=== PATIENT | female | born 1930 | race African-American/Black ===

== ENCOUNTER 2017-04-14 18:45 | Inpatient (IN) | payer MEDICARE ==
[~2017-04-14] VITALS: Ht 165.1 cm; Wt 70.5 kg
[~2017-04-14 18:45] MED LIST: ATEN1TAB74 PO; ATOR20TA PO; CLON.1 PO; HYDR-2768 PO; HYDR200T42 PO; LISI-366 PO; RANI150 PO
[2017-04-14 18:50] VITALS: BP 186/86; PULSE 80; RESP 20; TEMP 100.8; O2SAT 97
[2017-04-14] MEDS ORDERED: LISI40TA PO (19:08)
[2017-04-14] MEDS ORDERED: ASPI81CH6 CHEW (19:08)
[2017-04-14] MEDS ORDERED: [UNRECOGNIZED DRUG - OTHER] PO (19:08)
[2017-04-14] MEDS ORDERED: CALC-131 PO (19:08)
[2017-04-14] MEDS ORDERED: HYDR25TA5 PO (19:08)
[2017-04-14] MEDS ORDERED: BIOT10TA PO (19:08)
[2017-04-14] MEDS ORDERED: ATEN50TA PO (19:08)
[2017-04-14] MEDS ORDERED: RANI150T PO (19:08)
[2017-04-14] MEDS ORDERED: PLAQ200T PO (19:08)
[2017-04-14] MEDS ORDERED: HYDR-3799 PO (19:08)
[2017-04-14] MEDS ORDERED: ROSU1TAB4 PO (19:08)
[2017-04-14] MEDS ORDERED: CLON0.1T PO (19:08)
[2017-04-14] MEDS ORDERED: RAW PROBIOTIC PO (19:08)
[2017-04-14] MEDS ORDERED: OMEG-33 PO (19:08)
[2017-04-14] MEDS ORDERED: SODIUM CHLOR 0.9% 1000 ML INJ 1,000 ML IV ONE (19:20)
[2017-04-14] MEDS ORDERED: ACETAMINOPHEN 325 MG TAB PO ONE (19:30)
[2017-04-14 19:55] LABS: AUTOMATED NEUTROPHIL # 6.6 TH/MM3 (1.8-7.7); BASOPHIL # 0.1 TH/MM3 (0-0.2); BASOPHIL % 0.6 % (0.0-2.0); EOSINOPHIL % 0.4 % (0.0-4.0); HEMATOCRIT 36.5 % (35.0-46.0); LYMPHOCYTE # 1.2 TH/MM3 (1.0-4.8); MEAN CELL VOLUME 91.7 FL (80.0-100.0); MEAN CORPUSCULAR HEMOGLOBIN 28.8 PG (27.0-34.0); MEAN CORPUSCULAR HGB CONC 31.4 % (32.0-36.0); MONO % 16.3 % (0.0-8.0); NEUT % 69.7 % (16.0-70.0); PLATELET COUNT 220 TH/MM3 (150-450); RED BLOOD COUNT 3.98 MIL/MM3 (4.00-5.30); RED CELL DISTRIBUTION WIDTH 13.3 % (11.6-17.2); WHITE BLOOD COUNT 9.4 TH/MM3 (4.0-11.0)
[2017-04-14 19:59] LABS: HEMO FLAGS DIFF FINAL
[2017-04-14 20:10] VITALS: BP 186/92; PULSE 83; RESP 18; O2SAT 94
[2017-04-14 20:15] LABS: BLOOD, URINE NEG (NEG); GLUCOSE,URINE NEG (NEG); KETONE, URINE NEG (NEG); NITRITE,URINE NEG (NEG); PH, URINE 5.5 (5.0-8.5)
--- NOTE | 2017-04-14 20:16 | RADRPT ---
EXAM DATE/TIME: 04/14/2017 19:47 [facility] COMPARISON: No previous studies available for comparison. INDICATIONS : Cold symptoms for 1 week. MEDICAL HISTORY : Unobtainable. SURGICAL HISTORY : Unobtainable. ENCOUNTER: Initial ACUITY: 1 week PAIN SCORE: 0/10 LOCATION: Bilateral chest FINDINGS: A single view of the chest demonstrates mild cardiomegaly. Tortuous aorta. Elevated right hemidiaphra gm. Right basilar air space disease most characteristic of a bronchopneumonia. Mild left basilar opac ity. CONCLUSION: 1. Airspace disease right lung base most characteristic of a bronchopneumonia. Elevated right hemidia phragm with mild bibasilar atelectasis. Rex Zarate MD on April 14, 2017 at 20:13 Board Certified Radiologist. This report was verified electronically.
[2017-04-14 20:17] LABS: APTT (PATIENT) 27.7 SEC (24.3-30.1); PROTHROMBIN TIME - PATIENT 10.5 SEC (9.8-11.6)
--- NOTE | 2017-04-14 20:25 | RADRPT ---
EXAM DATE/TIME: 04/14/2017 19:50 [facility] COMPARISON: No previous studies available for comparison. INDICATIONS : Fell yesterday. MEDICAL HISTORY : None. SURGICAL HISTORY : None. ENCOUNTER: Initial ACUITY: 1 day PAIN SCORE: 8/10 LOCATION: Left posterior Hip FINDINGS: Examination of the left hip was performed with AP pelvis. The primary and secondary trabecular patte rn of the femoral neck is intact. The acetabulum is grossly intact. CONCLUSION: 1. No acute findings. 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 Rex Zarate MD on April 14, 2017 at 20:22 Board Certified Radiologist. This report was verified electronically.
--- NOTE | 2017-04-14 20:27 | PD ---
HPI Chief Complaint: General Weakness Time Seen by Provider: 19:12 Travel History International Travel<30 days: No Contact w/Intl Traveler<30days: No Traveled to known affect area: No History of Present Illness HPI Patient is a 87 year old female who comes in complaining of chills and feeling weak. She says this has been going on for the past week. She has been taking Tylenol because she felt like she had a fever, but has not taken her temperature. She denies any pain anywhere. She says she has not been eating because she has not appetite. She denies nausea or vomiting. She denies abdominal pain, or chest pain. She says she was so weak yesterday that she fell down. She landed on her left hip and has some pain there occasionally. She denies hitting her head. She last took Tylenol last night. PFSH Past Medical History Hx Anticoagulant Therapy: Yes (ASA) Anemia: Yes Arthritis: Yes Heart Rhythm Problems: Yes ("DURING SURGERY FOR LIVER CYST") Cardiac Catheterization: No Cardiovascular Problems: No High Cholesterol: Yes Congestive Heart Failure: No Diabetes: No Diminished Hearing: No GERD: Yes Hypertension: Yes Musculoskeletal: Yes (SPINAL STENOSIS) Myocardial Infarction: No Thyroid Disease: Yes Influenza Vaccination: No ?: Not Menopausal: Yes : 4 Para: 4 Past Surgical History Abdominal Surgery: Yes (CYST REMOVED FROM LIVER (?VIA LAP) SEPTEMBER 2007) Appendectomy: Yes (?) Cholecystectomy: Yes (?) Coronary Artery Bypass Graft: No Eye Surgery: Yes (BILATERAL CATARACT) Hysterectomy: Yes Joint Replacement: Yes (RIGHT KNEE) Oral Surgery: Yes (IMPLANTS) Social History Alcohol Use: No Tobacco Use: No Substance Use: No Allergies-Medications (Allergen,Severity, Reaction): Coded Allergies: No Known Allergies (Verified Allergy, Unknown, 04/14/17) Reported Meds & Prescriptions Reported Meds & Active Scripts Active Reported [Super Multiiron Free] 1 Cap PO DAILY Biotin 10 Mg Tab 10 Mg PO DAILY [Raw Probiotic] 1 Cap PO DAILY Calcium & Magnesium (Calcium-Magnesium) 750-465 Mg Tab 1 Tab PO DAILY Fish Oil Shawnee-3 EC 1,200 mg (Shawnee-3/Dha/Epa/Fish Oil) 360 Mg-1,200 Mg Capsule. 1 Cap PO DAILY Aspirin Low Dose (Aspirin) 81 Mg Chew 81 Mg CHEW HS Rosuvastatin (Rosuvastatin Calcium) 5 Mg Tab 5 Mg PO DAILY Ranitidine (Ranitidine HCl) 150 Mg Tab 150 Mg PO BID Plaquenil (Hydroxychloroquine Sulfate) 200 Mg Tab 200 Mg PO DAILY Take with food Hydralazine HCl 25 Mg Tablet 50 Mg PO TID Lisinopril 40 Mg Tab 40 Mg PO DAILY Clonidine (Clonidine HCl) 0.1 Mg Tab 0.1 Mg PO HS Atenolol 50 Mg Tab 50 Mg PO BID Review of Systems Except as stated in HPI: all other systems reviewed are Neg General / Constitutional: Positive: Fever, Chills HENT: No: Headaches, Lightheadedness Cardiovascular: No: Chest Pain or Discomfort Respiratory: No: Shortness of Breath Gastrointestinal: No: Vomiting, Abdominal Pain Musculoskeletal: No: Myalgias, Edema Skin: No Rash, No Change in Pigmentation Neurologic: Positive: Weakness Physical Exam Narrative GENERAL: Awake and alert, in no acute distress. SKIN: Focused skin assessment warm/dry. No wounds or signs of infection. HEAD: Atraumatic. Normocephalic. EYES: Pupils equal and round. No scleral icterus. EOMI. ENT: Mucous membranes pink and moist. NECK: Trachea midline. No JVD. CARDIOVASCULAR: Regular rate and rhythm. No murmur appreciated. RESPIRATORY: No accessory muscle use. Clear to auscultation. Breath sounds equal bilaterally. GASTROINTESTINAL: Abdomen soft, non-tender, nondistended. MUSCULOSKELETAL: No obvious deformities. No clubbing. No cyanosis. No edema. Pain with movement of her left hip. NEUROLOGICAL: Awake and alert. No obvious cranial nerve deficits. Motor grossly within normal limits. Normal speech. PSYCHIATRIC: Appropriate mood and affect; insight and judgment normal. Data Data Last Documented VS Vital Signs Date Time Temp Pulse Resp B/P (MAP) Pulse Ox O2 Delivery O2 Flow Rate FiO2 04/14/17 20:12 Nasal Cannula 2.00 04/14/17 20:10 83 18 186/92 (123) 94 04/14/17 18:50 100.8 Orders Orders Electrocardiogram (04/14/17 19:20) Complete Blood Count With Diff (04/14/17 19:20) Comprehensive Metabolic Panel (04/14/17 19:20) Prothrombin Time / Inr (Pt) (04/14/17 19:20) Act Partial Throm Time (Ptt) (04/14/17 19:20) Lactic Acid Sepsis Protocol (04/14/17 19:20) Ckmb (Isoenzyme) Profile (04/14/17 19:20) Troponin I (04/14/17 19:20) Urinalysis - C+S If Indicated (04/14/17 19:20) Influenzae A/B Antigen (04/14/17 19:20) Blood Culture (04/14/17 19:20) Chest, Single Ap (04/14/17 19:20) Blood Glucose (04/14/17 19:20) Ecg Monitoring (04/14/17 19:20) Iv Access Insert/Monitor (04/14/17 19:20) Oximetry (04/14/17 19:20) Oxygen Administration (04/14/17 19:20) Acetaminophen (Tylenol) (04/14/17 19:30) Sodium Chlor 0.9% 1000 Ml Inj (Ns 1000 M (04/14/17 19:20) Hip, Uni(4+Vws) W Ap Pelvis (04/14/17 ) Ceftriaxone Inj (Rocephin Inj) (04/14/17 20:30) Azithromycin Inj (Zithromax Inj) (04/14/17 20:30) Levofloxacin 750 Mg Premix Inj (Levaquin (04/14/17 20:30) CKMB (04/14/17 19:40) CKMB% (04/14/17 19:40) Admit Order (Ed Use Only) (04/14/17 ) Admit To Inpatient (04/14/17 ) Labs Laboratory Tests Test 04/14/17 19:40 04/14/17 20:05 White Blood Count 9.4 TH/MM3 Red Blood Count 3.98 MIL/MM3 Hemoglobin 11.4 GM/DL Hematocrit 36.5 % Mean Corpuscular Volume 91.7 FL Mean Corpuscular Hemoglobin 28.8 PG Mean Corpuscular Hemoglobin Concent 31.4 % Red Cell Distribution Width 13.3 % Platelet Count 220 TH/MM3 Mean Platelet Volume 8.9 FL Neutrophils (%) (Auto) 69.7 % Lymphocytes (%) (Auto) 13.0 % Monocytes (%) (Auto) 16.3 % Eosinophils (%) (Auto) 0.4 % Basophils (%) (Auto) 0.6 % Neutrophils # (Auto) 6.6 TH/MM3 Lymphocytes # (Auto) 1.2 TH/MM3 Monocytes # (Auto) 1.5 TH/MM3 Eosinophils # (Auto) 0.0 TH/MM3 Basophils # (Auto) 0.1 TH/MM3 CBC Comment DIFF FINAL Differential Comment Prothrombin Time 10.5 SEC Prothromb Time International Ratio 1.0 RATIO Activated Partial Thromboplast Time 27.7 SEC Blood Urea Nitrogen 22 MG/DL Creatinine 1.10 MG/DL Random Glucose 107 MG/DL Total Protein 7.2 GM/DL Albumin 3.2 GM/DL Calcium Level 8.9 MG/DL Alkaline Phosphatase 64 U/L Aspartate Amino Transf (AST/SGOT) 140 U/L Alanine Aminotransferase (ALT/SGPT) 133 U/L Total Bilirubin 0.5 MG/DL Sodium Level 125 MEQ/L Potassium Level 4.0 MEQ/L Chloride Level 91 MEQ/L Carbon Dioxide Level 23.7 MEQ/L Anion Gap 10 MEQ/L Estimat Glomerular Filtration Rate 57 ML/MIN Lactic Acid Level 0.8 mmol/L Total Creatine Kinase 131 U/L Creatine Kinase MB 1.0 NG/ML Troponin I LESS THAN 0.02 NG/ML Urine Color YELLOW Urine Turbidity CLEAR Urine pH 5.5 Urine Specific [place] 1.015 Urine Protein TRACE mg/dL Urine Glucose (UA) NEG mg/dL Urine Ketones NEG mg/dL Urine Occult Blood NEG Urine Nitrite NEG Urine Bilirubin NEG Urine Leukocyte Esterase NEG Urine RBC 4-9 /hpf Urine WBC 3-5 /hpf Urine Squamous Epithelial Cells 0-5 /hpf Urine Amorphous Sediment SMALL Urine Bacteria OCC /hpf Urine Hyaline Casts 0-2 /lpf Urine Mucus OCC /lpf Microscopic Urinalysis Comment CULT NOT INDICATED MDM Medical Decision Making Medical Screen Exam Complete: Yes Emergency Medical Condition: Yes Medical Record Reviewed: Yes Interpretation(s) ECG shows NSR at 84, no ST elevation or depression. Differential Diagnosis pneumonia vs UTI vs sepsis Narrative Course Patient is an 87-year-old female who comes in complaining of generalized weakness and chills. I established, labs sent. Chest x-ray shows a right lower lobe pneumonia. Labs concerning for hyponatremia with a sodium of 125. BUN is 22 with a creatinine of 1.1, concerning for dehydration. AST and ALT are also elevated to 140 and 133. given IV fluids, Tylenol, Rocephin, Levaquin. She'll be admitted for further management. Diagnosis Primary Impression: Pneumonia Qualified Codes: J18.1 - Lobar pneumonia, unspecified organism Additional Impressions: Hyponatremia Transaminitis Dehydration Admitting Information Admitting Physician Requests: Admit Jia Polanco MD Apr 14, 2017 20:27
[2017-04-14] MEDS ORDERED: cefTRIAXone INJ 1,000 MG in SODIUM CHLORIDE 0.9% INJ 100 ML IV ONE (20:30)
[2017-04-14] MEDS ORDERED: LEVOFLOXACIN 750 MG PREMIX INJ 150 ML IV ONE (20:30)
[2017-04-14] MEDS ORDERED: AZITHROMYCIN INJ 500 MG in SODIUM CHLOR 0.9% 250 ML INJ 250 ML IV ONE (20:30)
[2017-04-14 20:31] LABS: URINE COLOR YELLOW (YELLW/STRAW)
[2017-04-14 20:32] LABS: HYALINE CAST, URINE 0-2 /lpf (RARE); MUCUS URINE OCC /lpf (OCC)
[2017-04-14 20:33] LABS: BACTERIA, URINE OCC /hpf; COMMENT (UR) CULT NOT INDICATED; CULTURE IF INDICATED CULT NOT INDICATED; SQUAMOUS EPITHELIAL CELL URINE 0-5 /hpf (0-5)
[2017-04-14 20:38] LABS: CHLORIDE 91 MEQ/L (98-107); SODIUM (NA) 125 MEQ/L (136-145)
[2017-04-14 20:42] LABS: ANION GAP 10 MEQ/L (5-15); BICARBONATE 23.7 MEQ/L (21.0-32.0); BLOOD UREA NITROGEN 22 MG/DL (7-18)
[2017-04-14 20:45] LABS: ALT (GPT) 133 U/L (10-53); AST (GOT) 140 U/L (15-37); GLOMERULAR FILTRATION RATE 57 ML/MIN (>89)
[2017-04-14 20:47] LABS: TOTAL BILIRUBIN ADULT 0.5 MG/DL (0.2-1.0)
[2017-04-14 20:48] LABS: ALKALINE PHOSPHATASE 64 U/L (45-117); CREATINE KINASE 131 U/L (26-192)
[2017-04-14 21:14] VITALS: TEMP 98.8
--- NOTE | 2017-04-14 21:14 | EKG ---
Date Performed: 04/14/2017 Time Performed: 20:09:39 PTAGE: 87 years EKG: Sinus rhythm POSSIBLE LEFT ATRIAL ENLARGEMENT RIGHT BUNDLE BRANCH BLOCK. ABNORMAL ECG PREVIOUS TRACING : 04/21/2015 01.19 No significant change from previous tracing noted. DOCTOR: Mk Villalobos Interpretating Date/Time 04/14/2017 21:14:09
[2017-04-14] MEDS ORDERED: SODIUM CHLOR 0.9% 1000 ML INJ 1,000 ML IV SCH (21:15)
[2017-04-14] MEDS ORDERED: ACETAMINOPHEN 325 MG TAB PO PRN (21:15)
[2017-04-14 21:46] VITALS: BP 140/61; PULSE 70; O2SAT 99
[2017-04-14 22:00] VITALS: BP 157/70; PULSE 73; RESP 20; TEMP 98.7; O2SAT 98
[2017-04-14] MEDS ORDERED: LEVOFLOXACIN 500 MG PREMIX INJ 100 ML IV SCH (22:00)
[2017-04-14] MEDS ORDERED: ENOXAPARIN SODIUM 40 MG/0.4 ML SYRINGE SQ SCH (22:00)
[2017-04-15] VITALS: BP 157/70; PULSE 73; RESP 20; TEMP 98.7; O2SAT 98
[2017-04-15 07:34] LABS: AUTOMATED NEUTROPHIL # 4.9 TH/MM3 (1.8-7.7); BASOPHIL # 0.1 TH/MM3 (0-0.2); BASOPHIL % 1.2 % (0.0-2.0); EOSINOPHIL % 0.3 % (0.0-4.0); HEMATOCRIT 33.4 % (35.0-46.0); HEMO FLAGS DIFF FINAL; LYMPH % 12.6 % (9.0-44.0); LYMPHOCYTE # 0.9 TH/MM3 (1.0-4.8); MEAN CELL VOLUME 90.2 FL (80.0-100.0); MEAN CORPUSCULAR HGB CONC 32.2 % (32.0-36.0); MONO % 14.8 % (0.0-8.0); NEUT % 71.1 % (16.0-70.0); PLATELET COUNT 176 TH/MM3 (150-450); RED CELL DISTRIBUTION WIDTH 12.9 % (11.6-17.2); WHITE BLOOD COUNT 6.9 TH/MM3 (4.0-11.0)
[2017-04-15 07:36] LABS: POTASSIUM 3.9 MEQ/L (3.5-5.1)
[2017-04-15 07:40] LABS: BICARBONATE 22.6 MEQ/L (21.0-32.0)
[2017-04-15 08:00] VITALS: BP 139/75; PULSE 115; PULSE 82; RESP 16; TEMP 98.3; O2SAT 93
--- NOTE | 2017-04-15 08:15 | MH ---
cc: MARILU TYSON MD DATE OF : 1930 DATE OF ADMISSION: 04/14/2017 ADMITTING DIAGNOSIS: 1. Pneumonia, right base. 2. Hyponatremia. 3. Atrial fibrillation with rapid ventricular response. 4. Hypertension. 5. Hyperlipidemia. 6. Rheumatoid arthritis. 7. Gastroesophageal reflux disease. 8. Elevated liver function tests possibly secondary to statin drug. PERTINENT HISTORY This is a pleasant 87-year-old black female who came to the emergency room last night with just feeling weak, intermittent fever, chills, decreased appetite. Her symptoms began about 4-5 days prior. She did vomit once on the initial day of her symptoms with no further vomiting. She has had decreased appetite and she has had no diarrhea, no pain anywhere. She actually denies any runny nose, cough, no shortness of breath or pleuritic chest pain. No diarrhea. In the ED she was noted to have temperature of 100.8. She was hyponatremic with a sodium of 125 and her chest x-ray showed some airspace disease in the right lung base consistent with bronchopneumonia, also showed some mild basilar atelectasis. She was admitted for IV antibiotic therapy in the fluid therapy. MEDICAL HISTORY She has been under treatment for hypertension, hyperlipidemia, gastroesophageal reflux disease. She has hydroxychloroquine for rheumatoid arthritis. She denies any history of heart attack, angina, CHF. It sounds like she had some atrial fibrillation back several years ago when she had a cyst removed from her liver around 2007. Her initial EKG in the ED showed sinus rhythm. She has had no thyroid disease. No stroke or seizure no cancer. No diabetes. She has had some colon polyps removed in the past. Her last colonoscopy was in 2015. She denies any peptic ulcer disease. PAST SURGICAL HISTORY She has had a RUTHANN-BSO and states her appendix was removed at the same time. She had fibroids and she has had a right total knee arthroplasty, bilateral cataract extraction and lens implant. She has had an open surgical procedure of the abdomen with a cyst removed from the liver in the past. She denies any cholecystectomy. She has had colonoscopies in the past last 04/2015. ALLERGIES None. MEDICATIONS 1. Baby aspirin 81 milligrams a day. 2. Zantac 150 mg twice a day. 3. Fish oil one a day. 4. Hydroxychloroquine 200 mg one a day. 5. Atenolol 50 mg twice a day. 6. Hydralazine 50 mg three times a day. 7. Rosuvastatin 5 mg a day. 8. Lisinopril 40 mg a day. 9. Clonidine 0.1 milligrams at bed time. 10. HCTZ 25 mg a day. FAMILY HISTORY Her father at 83. Her had and peripheral artery disease and had amputation and of circulation problems. Mother at 92 of several strokes. SOCIAL HISTORY She has never smoked. Her first and she has been to her current for several years. She used to work for the [employer]. She has never smoked. Does not use alcohol. REVIEW OF SYSTEMS General: As mentioned, has had the fever, chills, generalized weakness and decreased appetite. HEENT: Without any runny nose, sore throat, visual complaints. Cardiovascular: No chest pain, orthopnea, PND. No palpitations. Pulmonary: No shortness of breath, wheezing or cough. GI: No nausea, vomiting or diarrhea. No abdominal pain. : No dysuria, urgency, frequency. Psychiatry: No anxiety, depression. Extremities: Without swelling. Musculoskeletal: See gets some occasional lower back pain, has had spinal stenosis in her lumbar region. Neuro: No confusion, memory loss, weakness or numbness in her extremities. PHYSICAL EXAMINATION: A pleasant black female in no acute distress. She has been afebrile since admission. Her BP is improved from when she was in the ED. It is down to 157/70. Her pulse last measured was 73 but as I am examining her this morning, her rhythm is irregular and her rate is anywhere from 110 to 120. O2 sat is 98% on two liters. HEENT: Pupils equal. No scleral icterus. Nose negative. Mouth without lesions. Neck: Without bruit. No JVD. Heart: Irregularly irregular mild tachycardia. Lungs: Some faint crackles in the right base. Abdomen: Soft, nontender, no mass. Extremities: No edema. Pulses are about 1 to 1-1/2 plus both feet. Skin: Negative. Neuro: Oriented x3. Cranial nerves intact. Motor sensory intact. LABORATORY Her sodium was 125, potassium normal, BUN was a little up at 22, creatinine a little high at 101, GFR 57, glucose 107, AST was high at 140, ALT high at 133, alkaline phosphatase normal. CK troponin were normal. Total protein was normal. Albumin 3.2. Lactic acid was 0.8. White count was 9.4, hemoglobin was just slightly low at 11.4 with normal red cell indices, probably consistent with her rheumatoid arthritis chronic disease. Urinalysis was showed 4-9 RBCs, 3-5 WBCs. Culture was not indicated. IMAGING STUDIES: Chest x-ray as mentioned showed some airspace disease in the right base consistent with bronchopneumonia and mild basilar atelectasis. She had x-ray of her hip and pelvis, it was negative for any fracture. As mentioned, she had fallen the day before. She came into the ED and complained of just a little bit of hip pain. ASSESSMENT As noted. PLAN The patient is in atrial fibrillation. She is on atenolol but has not received her dose this morning. Will maintain her on the 50 milligrams twice a day for rate control. I will order a 2-D echocardiogram and ask cardiology to see her. She is on aspirin 81 milligrams a day. Will let him determine if different anticoagulation is indicated after cardiology sees her. We have her on Levaquin for her pneumonia, so me IV normal saline for just slight dehydration and hyponatremia. Her lab this morning is still pending. We did stop her hydrochlorothiazide because of the low sodium. We stopped her statin drug because of the elevated liver enzymes. We also have her on Lovenox for DVT prophylaxis. MD DEBBIE Kaufman/BO /6:59 AM /7:52 AM
[2017-04-15] MEDS: cloNIDine HCL 0.1 MG TAB PO SCH ×2 (08:32→21:34)
[2017-04-15] MEDS: HYDROXYCHLOROQUINE SULFATE 200 MG TAB PO SCH (08:32)
[2017-04-15] MEDS: FAMOTIDINE 20 MG TAB PO SCH ×2 (08:32→21:36)
[2017-04-15] MEDS: LISINOPRIL 20 MG TAB PO SCH (08:32)
[2017-04-15] MEDS: hydrALAZINE HCL 50 MG TAB PO SCH ×3 (08:32→17:17)
--- NOTE | 2017-04-15 08:53 | RADRPT ---
EXAM DATE/TIME: 04/15/2017 08:16 [facility] COMPARISON: No previous studies available for comparison. INDICATIONS : Fever, chest pains MEDICAL HISTORY : None. SURGICAL HISTORY : None. ENCOUNTER: Initial ACUITY: 1 week PAIN SCORE: 3/10 LOCATION: Bilateral chest FINDINGS: There is elevation of the right hemidiaphragm. Patchy infiltrate is noted within the right mid lung f ield consistent with possible pneumonia. Clinical correlation is recommended. The heart is mildly pro minent. Severe arthritic changes are noted involving the shoulders bilaterally. Rotator cuff patholog y is likely bilaterally. CONCLUSION: 1. Patchy infiltrate within the right mid lung field consistent with probable pneumonia.Clinical joseph elation is recommended. 2. Mild cardiomegaly. 3. Elevation of the right hemidiaphragm. 4. Severe arthritic changes involving the shoulders with rotator cuff pathology likely bilaterally. Kiko Plasencia MD on April 15, 2017 at 8:48 Board Certified Radiologist. This report was verified electronically.
[2017-04-15] MEDS ORDERED: EPA PO SCH (09:00)
[2017-04-15] MEDS ORDERED: ATENOLOL 50 MG TAB PO SCH (09:00)
[2017-04-15] MEDS ORDERED: OMEGA PO SCH (09:00)
[2017-04-15] MEDS ORDERED: FISH OIL PO SCH (09:00)
[2017-04-15] MEDS ORDERED: ATORVASTATIN 10 MG TAB PO SCH (09:00)
[2017-04-15] MEDS ORDERED: hydrALAZINE HCL 25 MG TAB PO SCH (09:00)
[2017-04-15] MEDS ORDERED: DHA PO SCH (09:00)
[2017-04-15] MEDS ORDERED: ONDANSETRON HCL 4 MG/2 ML VIAL IV PUSH PRN (09:45)
[2017-04-15] MEDS: APIXABAN 2.5 MG TABLET PO SCH ×2 (09:59→21:35)
[2017-04-15] MEDS: SODIUM CHLOR 0.9% 1000 ML INJ 1,000 ML IV SCH (10:00)
[2017-04-15 12:00] VITALS: BP 127/60; PULSE 85; RESP 16; TEMP 98.5; O2SAT 96
[2017-04-15 16:00] VITALS: BP 109/54; PULSE 73; RESP 16; TEMP 98.2; O2SAT 95
[2017-04-15 20:00] VITALS: BP 112/61; PULSE 72; PULSE 80; RESP 18; TEMP 97.7; O2SAT 96
[2017-04-15] MEDS ORDERED: LEVOFLOXACIN 500 MG PREMIX INJ 100 ML IV SCH (21:00)
[2017-04-15] MEDS: METOPROLOL TARTRATE 50 MG TAB PO SCH (21:35)
[2017-04-15] MEDS: ASPIRIN 81 MG CHEW TAB CHEW SCH (21:35)
[2017-04-15 23:00] VITALS: PULSE 61
[2017-04-16] VITALS (8 sets, daily range): BP systolic 118–151; BP diastolic 59–68; PULSE 63–107; RESP 15–19; TEMP 96.7–98.8; O2SAT 97–100
[2017-04-16 06:16] LABS: AUTOMATED NEUTROPHIL # 2.8 TH/MM3 (1.8-7.7); BASOPHIL % 0.7 % (0.0-2.0); EOSINOPHIL # 0.1 TH/MM3 (0-0.4); EOSINOPHIL % 2.3 % (0.0-4.0); HEMATOCRIT 27.2 % (35.0-46.0); LYMPH % 20.9 % (9.0-44.0); MEAN CELL VOLUME 90.4 FL (80.0-100.0); MEAN CORPUSCULAR HEMOGLOBIN 29.9 PG (27.0-34.0); MEAN CORPUSCULAR HGB CONC 33.1 % (32.0-36.0); MONO % 21.7 % (0.0-8.0); NEUT % 54.4 % (16.0-70.0); PLATELET COUNT 164 TH/MM3 (150-450); RED BLOOD COUNT 3.01 MIL/MM3 (4.00-5.30); WHITE BLOOD COUNT 4.9 TH/MM3 (4.0-11.0)
[2017-04-16 06:17] LABS: HEMO FLAGS AUTO DIFF
[2017-04-16 06:18] LABS: POTASSIUM 3.8 MEQ/L (3.5-5.1)
[2017-04-16 06:51] LABS: BICARBONATE 23.5 MEQ/L (21.0-32.0); INDIRECT BILIRUBIN 0.4 MG/DL (0.0-0.8); TOTAL BILIRUBIN ADULT 0.5 MG/DL (0.2-1.0)
[2017-04-16 07:15] LABS: BANDS 2 % (0-6); EOSINOPHILS 1 % (0-4); NEUTROPHIL # MANUAL DIFF 2.6 TH/MM3 (1.8-7.7); PLATELET ESTIMATE SMEAR NORMAL (NORMAL); PLATELET MORPHOLOGY NORMAL (NORMAL); POLYS (SEG NEUTROPHILS) 52 % (16-70); SCAN/DIFF FINAL DIFF MANUAL; WBC DIFF SAMPLE 100
--- NOTE | 2017-04-16 08:17 | HHI.PR ---
Subjective Remarks She states she is breathing better today. Still occasional cough. She is still on oxygen. Objective Vitals Vital Signs Date Time Temp Pulse Resp B/P (MAP) Pulse Ox O2 Delivery O2 Flow Rate FiO2 04/16/17 00:00 97.5 79 19 118/65 (82) 97 04/15/17 23:00 61 04/15/17 20:00 72 04/15/17 20:00 97.7 80 18 112/61 (78) 96 04/15/17 20:00 97 Nasal Cannula 2.00 04/15/17 16:00 98.2 73 16 109/54 (72) 95 04/15/17 12:00 98.5 85 16 127/60 (82) 96 Result Diagram: 04/16/17 0531 04/16/17 0531 Other Results Laboratory Tests Test 04/14/17 19:40 04/14/17 20:05 04/15/17 07:15 04/16/17 05:31 White Blood Count 9.4 TH/MM3 6.9 TH/MM3 4.9 TH/MM3 Red Blood Count 3.98 MIL/MM3 3.70 MIL/MM3 3.01 MIL/MM3 Hemoglobin 11.4 GM/DL 10.8 GM/DL 9.0 GM/DL Hematocrit 36.5 % 33.4 % 27.2 % Mean Corpuscular Volume 91.7 FL 90.2 FL 90.4 FL Mean Corpuscular Hemoglobin 28.8 PG 29.0 PG 29.9 PG Mean Corpuscular Hemoglobin Concent 31.4 % 32.2 % 33.1 % Red Cell Distribution Width 13.3 % 12.9 % 13.0 % Platelet Count 220 TH/MM3 176 TH/MM3 164 TH/MM3 Mean Platelet Volume 8.9 FL 8.8 FL 8.4 FL Neutrophils (%) (Auto) 69.7 % 71.1 % 54.4 % Lymphocytes (%) (Auto) 13.0 % 12.6 % 20.9 % Monocytes (%) (Auto) 16.3 % 14.8 % 21.7 % Eosinophils (%) (Auto) 0.4 % 0.3 % 2.3 % Basophils (%) (Auto) 0.6 % 1.2 % 0.7 % Neutrophils # (Auto) 6.6 TH/MM3 4.9 TH/MM3 2.8 TH/MM3 Lymphocytes # (Auto) 1.2 TH/MM3 0.9 TH/MM3 1.0 TH/MM3 Monocytes # (Auto) 1.5 TH/MM3 1.0 TH/MM3 1.1 TH/MM3 Eosinophils # (Auto) 0.0 TH/MM3 0.0 TH/MM3 0.1 TH/MM3 Basophils # (Auto) 0.1 TH/MM3 0.1 TH/MM3 0.0 TH/MM3 CBC Comment DIFF FINAL DIFF FINAL AUTO DIFF Differential Comment FINAL DIFF MANUAL Prothrombin Time 10.5 SEC Prothromb Time International Ratio 1.0 RATIO Activated Partial Thromboplast Time 27.7 SEC Blood Urea Nitrogen 22 MG/DL 18 MG/DL 18 MG/DL Creatinine 1.10 MG/DL 0.80 MG/DL 0.92 MG/DL Random Glucose 107 MG/DL 97 MG/DL 107 MG/DL Total Protein 7.2 GM/DL 5.9 GM/DL Albumin 3.2 GM/DL 2.5 GM/DL Calcium Level 8.9 MG/DL 8.7 MG/DL 8.7 MG/DL Alkaline Phosphatase 64 U/L 52 U/L Aspartate Amino Transf (AST/SGOT) 140 U/L 100 U/L Alanine Aminotransferase (ALT/SGPT) 133 U/L 115 U/L Total Bilirubin 0.5 MG/DL 0.5 MG/DL Sodium Level 125 MEQ/L 131 MEQ/L 132 MEQ/L Potassium Level 4.0 MEQ/L 3.9 MEQ/L 3.8 MEQ/L Chloride Level 91 MEQ/L 97 MEQ/L 100 MEQ/L Carbon Dioxide Level 23.7 MEQ/L 22.6 MEQ/L 23.5 MEQ/L Anion Gap 10 MEQ/L 11 MEQ/L 9 MEQ/L Estimat Glomerular Filtration Rate 57 ML/MIN 82 ML/MIN 70 ML/MIN Lactic Acid Level 0.8 mmol/L Total Creatine Kinase 131 U/L Creatine Kinase MB 1.0 NG/ML Troponin I LESS THAN 0.02 NG/ML Urine Color YELLOW Urine Turbidity CLEAR Urine pH 5.5 Urine Specific [place] 1.015 Urine Protein TRACE mg/dL Urine Glucose (UA) NEG mg/dL Urine Ketones NEG mg/dL Urine Occult Blood NEG Urine Nitrite NEG Urine Bilirubin NEG Urine Leukocyte Esterase NEG Urine RBC 4-9 /hpf Urine WBC 3-5 /hpf Urine Squamous Epithelial Cells 0-5 /hpf Urine Amorphous Sediment SMALL Urine Bacteria OCC /hpf Urine Hyaline Casts 0-2 /lpf Urine Mucus OCC /lpf Microscopic Urinalysis Comment CULT NOT INDICATED Differential Total Cells Counted 100 Neutrophils % (Manual) 52 % Band Neutrophils % 2 % Lymphocytes % 28 % Monocytes % 17 % Eosinophils % 1 % Neutrophils # (Manual) 2.6 TH/MM3 Platelet Estimate NORMAL Platelet Morphology Comment NORMAL Direct Bilirubin 0.1 MG/DL Indirect Bilirubin 0.4 MG/DL Imaging Last Impressions Chest X-Ray 04/15/17 0000 Signed Impressions: Service Date/Time: Saturday, April 15, 2017 08:16 - CONCLUSION: 1. Patchy infiltrate within the right mid lung field consistent with probable pneumonia.Clinical correlation is recommended. 2. Mild cardiomegaly. 3. Elevation of the right hemidiaphragm. 4. Severe arthritic changes involving the shoulders with rotator cuff pathology likely bilaterally. Kiko Plasencia MD Hip and Pelvis X-Ray 04/14/17 0000 Signed Impressions: Service Date/Time: Friday, April 14, 2017 19:50 - CONCLUSION: 1. No acute findings. 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 Rex Zarate MD Objective Remarks Exam: Pleasant black female in no distress. HEENT: No scleral icterus, Pupils equal, mouth negative Neck: No JVD Heart: Irregular irregular rhythm c/w atrial fibrillation Lungs: Decreased breath sounds right base and faint crackles Abdomen: Soft, nontender Extremities: No edema Neuro: Alert, oriented, no focal findings A/P Assessment and Plan Assessment: --Pneumonia right lung base --Hyponatremia--improving --Mild dehydration--improved --Atrial fibrillation-- rate now controlled. Put on Eliquis yesterday. --Hypertension --Hyperlipidemia --Rheumatoid arthritis --GERD --Elevated liver enzymes likely secondary to statin drug use which was stopped --Anemia likely of chronic disease (from her rheumatoid arthritis). Hemoglobin has dropped from admission more likely to her baseline. She was likely a little hemoconcentrated on admission from her dehydration. Plan: I talked with cardiology (Dr Ruiz) yesterday and I told him it was okay for him to see her today which he stated he will do. I did change her Atenolol to Metoprolol for better heart rate control after talking with Dr Ruiz yesterday morning. A 2D echo was ordered yesterday. Continue antibiotics. She is now on Eliquis for her a-fib for stroke prevention. Monitor Hg. Shad Garibay MD Apr 16, 2017 08:17
[2017-04-16] MEDS: HYDROXYCHLOROQUINE SULFATE 200 MG TAB PO SCH (08:38)
[2017-04-16] MEDS: METOPROLOL TARTRATE 50 MG TAB PO SCH ×2 (08:38→20:44)
[2017-04-16] MEDS: FAMOTIDINE 20 MG TAB PO SCH ×2 (08:38→20:44)
[2017-04-16] MEDS: hydrALAZINE HCL 50 MG TAB PO SCH ×3 (08:38→17:38)
[2017-04-16] MEDS: cloNIDine HCL 0.1 MG TAB PO SCH ×2 (08:39→20:44)
[2017-04-16] MEDS: LISINOPRIL 20 MG TAB PO SCH (08:39)
[2017-04-16] MEDS: APIXABAN 2.5 MG TABLET PO SCH (08:45)
--- NOTE | 2017-04-16 10:06 | MB ---
cc: PENNIE EVERETT MD DATE OF CONSULTATION: 04/16/2017 HISTORY OF PRESENT ILLNESS This is an 87-year-old woman who presented to the emergency department after having intermittent fevers and chills. On evaluation in the emergency department she was found to have a right lower lobe infiltrate and has subsequently been admitted. She was noted to have atrial fibrillation with a rapid response and we have been asked to see her in that regard. She has been on atenolol in the past for her blood pressure. This was changed to metoprolol and her heart rate is currently well-controlled. She has been started on Eliquis 2.5 mg twice a day for thromboembolic protection. No prior history of heart disease has been present. She denies any palpitations. No real dyspnea or chest pain has been present. She denies any cough or sputum production. She was somewhat hyponatremic with a sodium of 125 on admission. This was subsequently corrected to 132. No significant white count has been present. We do note that her hemoglobin has fallen from 11 to 9. PAST MEDICAL HISTORY Past medical history is otherwise significant for hypertension for which she takes four medications as well as rheumatoid arthritis for which she takes Plaquenil. She has also been on rosuvastatin for hyperlipidemia. ALLERGIES None. SOCIAL HISTORY The patient does not smoke. She does not use alcohol or recreational drugs. PHYSICAL EXAMINATION GENERAL: She is awake and alert. VITAL SIGNS: She is afebrile. Blood pressure today is 120/65, pulse approximately 80 and irregular. NECK: There is no neck vein distention. LUNGS: Crackles in the right base. No wheezes or rhonchi is present. CARDIOVASCULAR: Irregular rhythm. There is no significant murmur or gallop noted. ABDOMEN: Soft. There is no tenderness or organomegaly. EXTREMITIES: No edema. LABORATORY DATA Laboratory examination as noted above. She also has had significant liver function abnormalities. Hepatitis profile has been drawn. It is possible that her transaminase elevation is secondary to the statin dose and this has been held. ASSESSMENT AND PLAN The patient has atrial fibrillation, probably as a secondary cause from her pneumonia. Will order an echocardiogram. She is on 2.5 mg of apixaban. Her weight is greater than 60 kg and she has normal renal function, so I have increased her dose up to 5 mg twice a day. MD YAMILET Hernandez /9:41 AM /9:52 AM
[2017-04-16] MEDS: SODIUM CHLOR 0.9% 1000 ML INJ 1,000 ML IV SCH (11:24)
--- NOTE | 2017-04-16 15:15 | ECHRPT ---
Indication: a fib/flutter CONCLUSIONS The left ventricular function is normal (EF 60-65%). Normal left ventricular size. Aneurysmal atrial septum Trace mitral valve regurgitation. Aortic valve sclerosis is present. There is mild tricuspid valve regurgitation. The estimated pulmonary arterial pressure is 36 mmHg. BP: / HR: Rhythm: MEASUREMENTS (Male / Female) Normal Values Technical Quality:Good 2D ECHO LV Diastolic Diameter PLAX 3.3 cm 4.2 - 5.9 / 3.9 - 5.3 cm LV Systolic Diameter PLAX 2.4 cm IVS Diastolic Thickness 1.4 cm 0.6 - 1.0 / 0.6 - 0.9 cm LVPW Diastolic Thickness 0.9 cm 0.6 - 1.0 / 0.6 - 0.9 cm LV Relative Wall Thickness 0.7 RV Internal Dim ED PLAX 3.1 cm LVOT Diameter 2.0 cm DOPPLER AV Peak Velocity 189.0 cm/s AV Peak Gradient 14.3 mmHg AV Mean Gradient 7.0 mmHg AV Velocity Time Integral 31.7 cm LVOT Peak Velocity 93.2 cm/s LVOT Peak Gradient 3.5 mmHg LVOT Velocity Time Integral 16.4 cm AV Area Cont Eq vti 1.6 cm AV Area Cont Eq pk 1.5 cm LV E' Lateral Velocity 18.6 cm/s LV E' Septal Velocity 9.0 cm/s TR Peak Velocity 257.0 cm/s TR Peak Gradient 26.4 mmHg Right Atrial Pressure 10.0 mmHg Pulmonary Artery Systolic Pressu 36.4 mmHg Right Ventricular Systolic Press 36.4 mmHg FINDINGS LEFT VENTRICLE Normal left ventricular size. The left ventricular systolic function is normal with an estimated ejection fraction in the range of 60-65%. RIGHT VENTRICLE Normal right ventricular size and systolic function. LEFT ATRIUM The left atrial size is normal. RIGHT ATRIUM The right atrial size is normal. ATRIAL SEPTUM aneurysmal atrial septum AORTA The aortic root and proximal ascending aorta are normal in size on limited imaging. MITRAL VALVE Structurally normal mitral valve. Trace mitral valve regurgitation. AORTIC VALVE Trileaflet aortic valve. Aortic valve sclerosis is present. Aortic valve area is 1.6 cm. Aortic valve mean gradient is 7 mmHg. TRICUSPID VALVE Structurally normal tricuspid valve. There is mild tricuspid valve regurgitation. The estimated pulmonary arterial pressure is 36.4 mmHg. PULMONARY VALVE No pulmonary valve regurgitation or stenosis. VESSELS The inferior vena cava is normal in size. PERICARDIUM No pericardial effusion. Amanda Napier MD, FACC (Electronically Signed) Final Date:16 April 2017 15:14
[2017-04-16 16:17] LABS: HEMATOCRIT 35.4 % (35.0-46.0)
[2017-04-16 16:19] LABS: REVIEW FLAG FINAL
--- NOTE | 2017-04-16 17:06 | EKG ---
Date Performed: 04/15/2017 Time Performed: 08:53:39 PTAGE: 87 years EKG: Sinus rhythm RIGHT BUNDLE BRANCH BLOCK Since previous tracing, no significant change noted ABNORMAL ECG PREVIOUS TRACING : 04/14/2017 20.09 DOCTOR: Sujit Medeiros Interpretating Date/Time 04/16/2017 17:06:04
[2017-04-16] MEDS: ASPIRIN 81 MG CHEW TAB CHEW SCH (20:44)
[2017-04-16] MEDS: APIXABAN 5 MG TABLET PO SCH (20:45)
[2017-04-16] MEDS ORDERED: LEVOFLOXACIN/DEXTROSE 250 MG/50 ML IV SCH (21:00)
[2017-04-17] VITALS: BP 117/56; PULSE 64; RESP 18; TEMP 97.7; O2SAT 97
[2017-04-17 04:00] VITALS: BP 138/64; PULSE 71; RESP 18; TEMP 98.8; O2SAT 99
[2017-04-17 06:25] LABS: AUTOMATED NEUTROPHIL # 4.3 TH/MM3 (1.8-7.7); BASOPHIL # 0.1 TH/MM3 (0-0.2); EOSINOPHIL # 0.2 TH/MM3 (0-0.4); EOSINOPHIL % 2.8 % (0.0-4.0); HEMATOCRIT 28.7 % (35.0-46.0); HEMO FLAGS DIFF FINAL; LYMPH % 13.8 % (9.0-44.0); LYMPHOCYTE # 0.9 TH/MM3 (1.0-4.8); MEAN CELL VOLUME 90.3 FL (80.0-100.0); MEAN CORPUSCULAR HEMOGLOBIN 28.6 PG (27.0-34.0); MEAN CORPUSCULAR HGB CONC 31.7 % (32.0-36.0); MONO % 14.4 % (0.0-8.0); PLATELET COUNT 182 TH/MM3 (150-450); RED BLOOD COUNT 3.17 MIL/MM3 (4.00-5.30); RED CELL DISTRIBUTION WIDTH 13.1 % (11.6-17.2); WHITE BLOOD COUNT 6.4 TH/MM3 (4.0-11.0)
[2017-04-17 06:36] LABS: POTASSIUM 4.1 MEQ/L (3.5-5.1)
[2017-04-17 06:43] LABS: BICARBONATE 24.1 MEQ/L (21.0-32.0)
[2017-04-17 06:46] LABS: INDIRECT BILIRUBIN 0.2 MG/DL (0.0-0.8); TOTAL BILIRUBIN ADULT 0.3 MG/DL (0.2-1.0)
[2017-04-17 08:25] VITALS: O2SAT 98
[2017-04-17] MEDS: APIXABAN 5 MG TABLET PO SCH (08:30)
[2017-04-17] MEDS: HYDROXYCHLOROQUINE SULFATE 200 MG TAB PO SCH (08:31)
[2017-04-17] MEDS: hydrALAZINE HCL 50 MG TAB PO SCH ×2 (08:31→12:38)
[2017-04-17] MEDS: METOPROLOL TARTRATE 50 MG TAB PO SCH (08:31)
[2017-04-17] MEDS: cloNIDine HCL 0.1 MG TAB PO SCH (08:32)
[2017-04-17] MEDS: FAMOTIDINE 20 MG TAB PO SCH (08:32)
[2017-04-17] MEDS: LISINOPRIL 20 MG TAB PO SCH (08:33)
[2017-04-17] MEDS ORDERED: DOCUSATE SODIUM 100 MG CAP PO SCH (09:00)
[2017-04-17 09:26] VITALS: BP 161/72; PULSE 69; RESP 16; TEMP 96.9; O2SAT 97
--- NOTE | 2017-04-17 10:20 | RADRPT ---
EXAM DATE/TIME: 04/17/2017 09:50 [facility] COMPARISON: CHEST PA & LAT, April 15, 2017, 8:16. INDICATIONS : Pneumonia. MEDICAL HISTORY : Hypercholesterolemia. Gastroesophageal reflux disease. Arthritis. Thyroid disease. Irregular hear t beat. Hypertension.Spinal stenosis. SURGICAL HISTORY : Abdominal aortic aneurysm repair. Cholecystectomy. Total knee replacement, right. Hysterectomy. Cyst removal off liver. ENCOUNTER: Subsequent ACUITY: 4 - 6 days PAIN SCORE: 0/10 LOCATION: chest FINDINGS: PA and lateral views of the chest demonstrate the right upper lobe infiltrate has mostly cleared. The right hemidiaphragm remains elevated. Left lung is clear.. The cardiomediastinal contours are unrem arkable. Right humerus is superiorly migrated consistent rotator cuff tear. There is diffuse osteope margarita of the thoracic spine. CONCLUSION: The right upper lobe infiltrate has mostly cleared. Diffuse osteopenia. Sundeep Alvarado MD on April 17, 2017 at 10:16 Board Certified Radiologist. This report was verified electronically.
[2017-04-17] MEDS ORDERED: LEVOFLOXACIN 500 MG TAB PO SCH (11:00)
[2017-04-17] MEDS: SODIUM CHLOR 0.9% 1000 ML INJ 1,000 ML IV SCH (11:25)
[2017-04-17] MEDS ORDERED: CLON.1 PO (12:47)
[2017-04-17] MEDS ORDERED: APIX5TAB PO (12:47)
[2017-04-17] MEDS ORDERED: METO-309 PO (12:47)
[2017-04-17] MEDS ORDERED: LEVA500T33 PO (12:47)
--- NOTE | 2017-04-17 12:47 | PD.CARD.PN ---
Subjective Subjective Remarks Stable Cv. No chest pain or palpitations. HR well controlled Objective Medications Current Medications Medications (Trade) Dose Ordered Sig/Marcelo Route Start Time Stop Time Status Last Admin (Tylenol) 650 mg Q6HR PRN PO 04/14/17 21:15 (Aspirin Chew) 81 mg HS CHEW 04/15/17 21:00 04/16/17 20:44 (Plaquenil) 200 mg DAILY PO 04/15/17 09:00 04/17/17 08:31 (Prinivil) 40 mg DAILY PO 04/15/17 09:00 04/17/17 08:33 (Pepcid) 10 mg BID PO 04/15/17 09:00 04/17/17 08:32 (Catapres) 0.1 mg Q12HR PO 04/15/17 09:00 04/17/17 08:32 (Apresoline) 50 mg TID PO 04/15/17 09:00 04/17/17 12:38 (Zofran Inj) 4 mg Q6H PRN IV PUSH 04/15/17 09:45 (Lopressor) 50 mg Q12HR PO 04/15/17 21:00 04/17/17 08:31 Sodium Chloride 1,000 ml @ 42 mls/hr [id number] IV 04/15/17 09:45 04/17/17 11:25 (Eliquis) 5 mg BID PO 04/16/17 21:00 04/17/17 08:30 (Levaquin) 500 mg DAILY@1100 PO 04/17/17 11:00 04/17/17 11:23 (Colace) 100 mg BID PO 04/17/17 09:00 04/17/17 08:37 Vital Signs / I&O Vital Signs Date Time Temp Pulse Resp B/P (MAP) Pulse Ox O2 Delivery O2 Flow Rate FiO2 04/17/17 09:26 96.9 69 16 161/72 (101) 97 04/17/17 08:25 98 21 04/17/17 08:00 Nasal Cannula 2.00 04/17/17 04:00 98.8 71 18 138/64 (88) 99 04/17/17 00:00 97.7 64 18 117/56 (76) 97 04/16/17 23:00 66 04/16/17 20:00 98.8 73 18 145/67 (93) 99 04/16/17 19:00 98 Nasal Cannula 2.00 04/16/17 18:08 98.0 71 16 151/68 (95) 97 04/16/17 14:55 96.7 63 15 128/59 (82) 100 I/O 04/16/17 04/16/17 04/16/17 04/17/17 04/17/17 04/17/17 07:00 15:00 23:00 07:00 15:00 23:00 Intake Total 682 ml 1344 ml 580 ml Output Total 300 ml Balance 382 ml 1344 ml 580 ml Intake Oral 1000 ml 580 ml IV Total 682 ml 344 ml Output Urine Total 300 ml # Voids 1 4 2 # Bowel Movements 0 Laboratory Laboratory Tests Test 04/16/17 16:05 04/17/17 05:15 Hemoglobin 11.6 GM/DL 9.1 GM/DL Hematocrit 35.4 % 28.7 % White Blood Count 6.4 TH/MM3 Red Blood Count 3.17 MIL/MM3 Mean Corpuscular Volume 90.3 FL Mean Corpuscular Hemoglobin 28.6 PG Mean Corpuscular Hemoglobin Concent 31.7 % Red Cell Distribution Width 13.1 % Platelet Count 182 TH/MM3 Mean Platelet Volume 9.2 FL Neutrophils (%) (Auto) 68.0 % Lymphocytes (%) (Auto) 13.8 % Monocytes (%) (Auto) 14.4 % Eosinophils (%) (Auto) 2.8 % Basophils (%) (Auto) 1.0 % Neutrophils # (Auto) 4.3 TH/MM3 Lymphocytes # (Auto) 0.9 TH/MM3 Monocytes # (Auto) 0.9 TH/MM3 Eosinophils # (Auto) 0.2 TH/MM3 Basophils # (Auto) 0.1 TH/MM3 CBC Comment DIFF FINAL Differential Comment Blood Urea Nitrogen 17 MG/DL Creatinine 0.75 MG/DL Random Glucose 103 MG/DL Total Protein 5.9 GM/DL Albumin 2.5 GM/DL Calcium Level 8.7 MG/DL Alkaline Phosphatase 53 U/L Aspartate Amino Transf (AST/SGOT) 88 U/L Alanine Aminotransferase (ALT/SGPT) 109 U/L Total Bilirubin 0.3 MG/DL Direct Bilirubin 0.1 MG/DL Sodium Level 133 MEQ/L Potassium Level 4.1 MEQ/L Chloride Level 102 MEQ/L Carbon Dioxide Level 24.1 MEQ/L Anion Gap 7 MEQ/L Estimat Glomerular Filtration Rate 89 ML/MIN Indirect Bilirubin 0.2 MG/DL Imaging Last 24 hours Impressions Chest X-Ray 04/17/17 0000 Signed Impressions: Service Date/Time: Monday, April 17, 2017 09:50 - CONCLUSION: The right upper lobe infiltrate has mostly cleared. Diffuse osteopenia. Sundeep Alvarado MD Assessment and Plan Assessment and Plan Stable CV. Will see Popeye Tirado MD Apr 17, 2017 12:47
--- NOTE | 2017-04-17 12:51 | HHI.FF ---
Face to Face Verification Diagnosis: (1) Pneumonia (2) Paroxysmal atrial fibrillation (3) Hyponatremia (4) Dehydration (5) Anemia of chronic disease (6) Hypertension Physical Therapy Order: Evaluate and Treat, Improve ambulation, Strength and gait training Occupational Therapy Order: Evaluate and Treat Home Health Nursing Order: Medical education Medication education-adverse effect Nursing assessment with vital signs I have seen patient Bria Dutta on 04/17/17. My clinical findings support the need for the requested home health care services because: Deconditioned w/ increased weakness I certify that my clinical findings support that this patient is homebound because: Unsafe to leave home unassisted Shad Garibay MD Apr 17, 2017 12:51
--- NOTE | 2017-04-17 14:25 | HHI.DS ---
Discharge Summary Admission Date Apr 14, 2017 at 21:02 Discharge Date: Apr 17, 2017 Admitting Diagnosis pneumonia, hyponatremia, (1) Pneumonia Diagnosis: Principal ICD Codes: J18.9 - Pneumonia, unspecified organism Status: Acute (2) Hyponatremia Diagnosis: Principal ICD Codes: E87.1 - Hypo-osmolality and hyponatremia Status: Acute (3) Dehydration Diagnosis: Principal ICD Codes: E86.0 - Dehydration Status: Acute (4) Paroxysmal atrial fibrillation Diagnosis: Secondary ICD Codes: I48.0 - Paroxysmal atrial fibrillation (5) Hypertension Diagnosis: Secondary ICD Codes: I10 - Essential (primary) hypertension (6) Anemia of chronic disease Diagnosis: Secondary ICD Codes: D63.8 - Anemia in other chronic diseases classified elsewhere (7) Abnormal liver function tests Diagnosis: Secondary ICD Codes: R79.89 - Other specified abnormal findings of blood chemistry (8) Hyperlipidemia Diagnosis: Secondary ICD Codes: E78.5 - Hyperlipidemia, unspecified (9) Rheumatoid arthritis Diagnosis: Secondary ICD Codes: M06.9 - Rheumatoid arthritis, unspecified (10) GERD (gastroesophageal reflux disease) Diagnosis: Secondary ICD Codes: K21.9 - Gastro-esophageal reflux disease without esophagitis [facility] (Dr Popeye Gage) Brief History 87 year old black female who came to the ER on the evening of 04-14-17 with generalized weakness, intermittent fever, chills, decreased appetite. Her symptoms had begun 4-5 days prior and progressed. She vomited on the initial day of her symptoms but none since then. She denies a cough, runny nose, shortness of breath or wheezing. No diarrhea. In the ER she had a temperature of 100.8 and her sodium level was low at 125. Her chest x-ray showed some air space disease in the right lung base consistent with bronchopneumonia. She was admitted for IV antibiotic therapy and IV fluids. She gave history of hypertension, hyperlipidemia. GERD, prior atrial fibrillation several years prior, rheumatoid arthritis. No history of heart attack, angina, prior lung disease, CHF, diabetes. CBC/BMP: 04/17/17 0515 04/17/17 0515 Significant Findings Laboratory Tests Test 04/16/17 05:31 04/16/17 16:05 04/17/17 05:15 White Blood Count 4.9 TH/MM3 6.4 TH/MM3 Red Blood Count 3.01 MIL/MM3 3.17 MIL/MM3 Hemoglobin 9.0 GM/DL 11.6 GM/DL 9.1 GM/DL Hematocrit 27.2 % 35.4 % 28.7 % Mean Corpuscular Volume 90.4 FL 90.3 FL Mean Corpuscular Hemoglobin 29.9 PG 28.6 PG Mean Corpuscular Hemoglobin Concent 33.1 % 31.7 % Red Cell Distribution Width 13.0 % 13.1 % Platelet Count 164 TH/MM3 182 TH/MM3 Mean Platelet Volume 8.4 FL 9.2 FL Neutrophils (%) (Auto) 54.4 % 68.0 % Lymphocytes (%) (Auto) 20.9 % 13.8 % Monocytes (%) (Auto) 21.7 % 14.4 % Eosinophils (%) (Auto) 2.3 % 2.8 % Basophils (%) (Auto) 0.7 % 1.0 % Neutrophils # (Auto) 2.8 TH/MM3 4.3 TH/MM3 Lymphocytes # (Auto) 1.0 TH/MM3 0.9 TH/MM3 Monocytes # (Auto) 1.1 TH/MM3 0.9 TH/MM3 Eosinophils # (Auto) 0.1 TH/MM3 0.2 TH/MM3 Basophils # (Auto) 0.0 TH/MM3 0.1 TH/MM3 CBC Comment AUTO DIFF DIFF FINAL Differential Total Cells Counted 100 Neutrophils % (Manual) 52 % Band Neutrophils % 2 % Lymphocytes % 28 % Monocytes % 17 % Eosinophils % 1 % Neutrophils # (Manual) 2.6 TH/MM3 Differential Comment FINAL DIFF MANUAL Platelet Estimate NORMAL Platelet Morphology Comment NORMAL Blood Urea Nitrogen 18 MG/DL 17 MG/DL Creatinine 0.92 MG/DL 0.75 MG/DL Random Glucose 107 MG/DL 103 MG/DL Total Protein 5.9 GM/DL 5.9 GM/DL Albumin 2.5 GM/DL 2.5 GM/DL Calcium Level 8.7 MG/DL 8.7 MG/DL Alkaline Phosphatase 52 U/L 53 U/L Aspartate Amino Transf (AST/SGOT) 100 U/L 88 U/L Alanine Aminotransferase (ALT/SGPT) 115 U/L 109 U/L Total Bilirubin 0.5 MG/DL 0.3 MG/DL Direct Bilirubin 0.1 MG/DL 0.1 MG/DL Sodium Level 132 MEQ/L 133 MEQ/L Potassium Level 3.8 MEQ/L 4.1 MEQ/L Chloride Level 100 MEQ/L 102 MEQ/L Carbon Dioxide Level 23.5 MEQ/L 24.1 MEQ/L Anion Gap 9 MEQ/L 7 MEQ/L Estimat Glomerular Filtration Rate 70 ML/MIN 89 ML/MIN Indirect Bilirubin 0.4 MG/DL 0.2 MG/DL Laboratory Tests Test 04/14/17 19:40 04/14/17 20:05 04/15/17 07:15 04/16/17 05:31 Red Blood Count 3.98 MIL/MM3 (4.00-5.30) 3.70 MIL/MM3 (4.00-5.30) 3.01 MIL/MM3 (4.00-5.30) Hemoglobin 11.4 GM/DL (11.6-15.3) 10.8 GM/DL (11.6-15.3) 9.0 GM/DL (11.6-15.3) Mean Corpuscular Hemoglobin Concent 31.4 % (32.0-36.0) Monocytes (%) (Auto) 16.3 % (0.0-8.0) 14.8 % (0.0-8.0) 21.7 % (0.0-8.0) Monocytes # (Auto) 1.5 TH/MM3 (0-0.9) 1.0 TH/MM3 (0-0.9) 1.1 TH/MM3 (0-0.9) Blood Urea Nitrogen 22 MG/DL (7-18) Creatinine 1.10 MG/DL (0.50-1.00) Random Glucose 107 MG/DL (74-106) 107 MG/DL (74-106) Albumin 3.2 GM/DL (3.4-5.0) 2.5 GM/DL (3.4-5.0) Aspartate Amino Transf (AST/SGOT) 140 U/L (15-37) 100 U/L (15-37) Alanine Aminotransferase (ALT/SGPT) 133 U/L (10-53) 115 U/L (10-53) Sodium Level 125 MEQ/L (136-145) 131 MEQ/L (136-145) 132 MEQ/L (136-145) Chloride Level 91 MEQ/L (98-107) 97 MEQ/L (98-107) Estimat Glomerular Filtration Rate 57 ML/MIN (>89) 82 ML/MIN (>89) 70 ML/MIN (>89) Troponin I LESS THAN 0.02 NG/ML Urine RBC 4-9 /hpf (0-3) Urine Bacteria OCC /hpf (NONE) Hematocrit 33.4 % (35.0-46.0) 27.2 % (35.0-46.0) Neutrophils (%) (Auto) 71.1 % (16.0-70.0) Lymphocytes # (Auto) 0.9 TH/MM3 (1.0-4.8) Monocytes % 17 % (0-8) Total Protein 5.9 GM/DL (6.4-8.2) Test 04/16/17 16:05 04/17/17 05:15 Red Blood Count 3.17 MIL/MM3 (4.00-5.30) Hemoglobin 9.1 GM/DL (11.6-15.3) Hematocrit 28.7 % (35.0-46.0) Mean Corpuscular Hemoglobin Concent 31.7 % (32.0-36.0) Monocytes (%) (Auto) 14.4 % (0.0-8.0) Lymphocytes # (Auto) 0.9 TH/MM3 (1.0-4.8) Total Protein 5.9 GM/DL (6.4-8.2) Albumin 2.5 GM/DL (3.4-5.0) Aspartate Amino Transf (AST/SGOT) 88 U/L (15-37) Alanine Aminotransferase (ALT/SGPT) 109 U/L (10-53) Sodium Level 133 MEQ/L (136-145) Imaging Last Impressions Chest X-Ray 04/17/17 0000 Signed Impressions: Service Date/Time: Monday, April 17, 2017 09:50 - CONCLUSION: The right upper lobe infiltrate has mostly cleared. Diffuse osteopenia. Sundeep Alvarado MD Hip and Pelvis X-Ray 04/14/17 0000 Signed Impressions: Service Date/Time: Friday, April 14, 2017 19:50 - CONCLUSION: 1. No acute findings. 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 Rex Zarate MD PE at Discharge Exam: Pleasant black female in no distress. HEENT: No scleral icterus, Pupils equal, mouth negative Neck: No JVD Heart: Her heart rhythm today was regular and her monitor showed her to be back in sinus rhythm Lungs: Improved breath sounds in the lung bases Abdomen: Soft, nontender Extremities: No edema Neuro: Alert, oriented, no focal findings Hospital Course She was admitted and put on IV Levaquin. She was also given normal saline for mild dehydration. When I saw her the morning after she was admitted in the late evening she was in atrial fibrillation and her heart rate was tachycardic ranging from around 110-125. I contacted cardiology Dr Ruiz and he suggested putting her on Eliquis and changing her Atenolol to Metoprolol which was done. A 2D echo was subsequently done and her EF was good and there was no significant valvular heart disease or LV dysfunction. Her liver enzymes were elevated on admission so her statin drug was stopped and her liver enzymes have started to improve. Her Hg is low but this is likely anemia of chronic disease from her rheumatoid arthritis. It was highest on the day of the admission more likely due to hemoconcentration because of initial diarrhea. Her Hg did drop with hydration. Her kidney function improved with hydration. Her sodium level improved to 133 and I have stopped her HCTZ also because of the low sodium. Her chest x-ray showed almost complete clearing of lung infiltrate and clinically she is much better. I am going to arrange for home health care for monitoring her blood pressure and heart rate and for some physical therapy at her request to help strengthen her. I have suggested she repeat a CBC, hepatic function panel, and BMP in 2 weeks and followup with her PCP in one week and Dr Gage in 2 weeks. She was given Levaquin 500mg daily for 7 days. She was given script also for Eliquis and Metoprolol and Clonidine. She will stay off her Rosuvastatin and HCTZ. Pt Condition on Discharge: Good Discharge Disposition: Disch w/ Home Health Serv Discharge Instructions DIET: Follow Instructions for: Heart Healthy Diet, Low Sodium Diet Activities you can perform: See Additionl Instruction Other Activity Instructions: She should take it easy unitl she feels capable of doing her former activities. Home health care ordered for home physical therapy Follow up Referrals: Cardiology with Popeye Gage PCP Follow-up - 1 Week @ PCP SN[facility]/ with [facility] New Orders: BASIC METABOLIC PROF - 2 Weeks CBC WITH DIFF - 2 Weeks HEPATIC FUNCTION OCONNOR - 2 Weeks New Medications: Apixaban (Eliquis) 5 Mg Tab 5 MG PO BID for paroxysmal atrial fibrillation for 30 Days, #60 TAB One tablet twice a day Clonidine (Catapres) 0.1 Mg Tab 0.1 MG PO Q12HR for hypertension for 30 Days, #60 TAB Levofloxacin (Levaquin) 500 Mg Tablet 500 MG PO DAILY@1100 for pneumonia for 7 Days, #7 TAB one tablet daily for 7 days Metoprolol Tartrate (Lopressor) 50 Mg Tab 50 MG PO Q12HR for hypertension;atrial fib for 31 Days, #62 TAB Continued Medications: Aspirin (Aspirin Low Dose) 81 Mg Chew 81 MG CHEW HS, TAB 0 Refills Biotin (Biotin) 10 Mg Tab 10 MG PO DAILY for Nutritional Supplement, #1 BOTTLE 0 Refills Calcium-Magnesium (Calcium & Magnesium) 750-465 Mg Tab 1 TAB PO DAILY for Nutritional Supplement, TAB Hydralazine HCl (Hydralazine HCl) 25 Mg Tablet 50 MG PO TID for Blood Pressure Management, #90 TAB 0 Refills Hydroxychloroquine (Plaquenil) 200 Mg Tab 200 MG PO DAILY, #30 TAB 0 Refills Take with food Lisinopril (Lisinopril) 40 Mg Tab 40 MG PO DAILY for Blood Pressure Management, #30 TAB 0 Refills [place]-3/Dha/Epa/Fish Oil (Fish Oil [place]-3 EC 1,200 mg) 360 Mg-1,200 Mg Capsule.dr 1 CAP PO DAILY for Nutritional Supplement Ranitidine (Ranitidine) 150 Mg Tab 150 MG PO BID for Heartburn Management, #60 TAB 0 Refills [Raw Probiotic] () 1 CAP PO DAILY for Nutritional Supplement [Super Multiiron Free] () 1 CAP PO DAILY for Nutritional Supplement Discontinued Medications: Atenolol (Atenolol) 50 Mg Tab 50 MG PO BID for Blood Pressure Management, #14 TAB 0 Refills Clonidine (Clonidine) 0.1 Mg Tab 0.1 MG PO HS for Blood Pressure Management, #60 TAB 0 Refills Rosuvastatin (Rosuvastatin) 5 Mg Tab 5 MG PO DAILY for Cholesterol Management, #30 TAB 0 Refills Shad Garibay MD Apr 17, 2017 14:25
[2017-04-17 14:47] VITALS: BP 130/66; PULSE 106; RESP 16; TEMP 97.7; O2SAT 92
== END 2017-04-17 16:16 | disposition home health service (06) | DRG 194 ==
LOC: PHED 18:45 → PHEDA 21:02 → PH3B 21:53
PROVIDERS: ADMIT Family Medicine; ATTEND Family Medicine
DX: J18.0 Bronchopneumonia, unspecified organism (principal); E87.1 Hypo-osmolality and hyponatremia; E86.0 Dehydration; I48.0 Paroxysmal atrial fibrillation; J98.11 Atelectasis; I10 Essential (primary) hypertension; E78.5 Hyperlipidemia, unspecified; D63.8 Anemia in other chronic diseases classified elsewhere; K21.9 Gastro-esophageal reflux disease without esophagitis; M06.9 Rheumatoid arthritis, unspecified; Z79.82 Long term (current) use of aspirin; Z96.651 Presence of right artificial knee joint; M19.90 Unspecified osteoarthritis, unspecified site; M48.00 Spinal stenosis, site unspecified; R74.8 Abnormal levels of other serum enzymes
CPT/HCPCS: 71010; 71020; 73503; 80048; 80053; 80074; 80076; 81001; 82550; 82552; 83605; 84484; 85007; 85014; 85018; 85025; 85027; 85610; 85730; 87040; 87804; 93005; 93306; 94620; 96365; J0696; J1650; J1956; J7030